=== PATIENT | female | born 1955 | race Caucasian/White ===

== ENCOUNTER 2016-07-15 19:32 | Emergency (ER) | payer MEDICARE ==
[2016-07-15] MEDS ORDERED: DIAZEPAM 5 MG TABLET PO ONE (20:59)
--- NOTE | 2016-07-15 20:59 | ER Document Report ---
ED General - General Chief Complaint: Psych Problem Stated Complaint: PSYCH EVAL/LEFT SIDE PAIN Time Seen by Provider: 07/15/16 20:25 Notes: Patient is a 61-year-old female past medical history of depression, anxiety, and chronic pain who presents "with a mental breakdown". Patient states she got into a verbal altercation with her neighbor yesterday and this is triggered increased anxiety as well as homicide ideation toward this neighbor. Denies any acute suicidal ideation. She is not currently following a mental health provider notes that she's been out of all of her medications for at least 3 months. Nothing improves or worsens her symptoms. She denies any specific plan or intention to hurt her neighbor. - Related Data Allergies/Adverse Reactions: oxycodone [From OxyContin] Allergy (Verified 07/15/16 19:36) Past Medical History - General Information source: Patient - Social History Smoking Status: Never Smoker Frequency of alcohol use: None Drug Abuse: None Lives with: Family Family History: Reviewed & Not Pertinent Renal/ Medical History: Denies: Hx Peritoneal Dialysis Review of Systems - Review of Systems Notes: Constitutional: Negative for fever. HENT: Negative for sore throat. Eyes: Negative for visual changes. Cardiovascular: Negative for chest pain. Respiratory: Negative for shortness of breath. Gastrointestinal: Negative for abdominal pain, vomiting or diarrhea. Genitourinary: Negative for dysuria. Musculoskeletal: Negative for back pain. Skin: Negative for rash. Neurological: Negative for headaches, weakness or numbness. 10 point ROS negative except as marked above and in HPI. Physical Exam - Vital signs Vitals: Temp Pulse Resp BP Pulse Ox 98.2 F 101 H 20 196/115 H 97 07/15/16 19:36 07/15/16 19:36 07/15/16 19:36 07/15/16 19:36 07/15/16 19:36 Interpretation: Normal Notes: PHYSICAL EXAMINATION: GENERAL: Well-appearing, well-nourished and in no acute distress. HEAD: Atraumatic, normocephalic. EYES: Pupils equal round and reactive to light, extraocular movements intact, sclera anicteric, conjunctiva are normal. ENT: nares patent, oropharynx clear without exudates. Moist mucous membranes. NECK: Normal range of motion, supple without lymphadenopathy LUNGS: Breath sounds clear to auscultation bilaterally and equal. No wheezes rales or rhonchi. HEART: Regular rate and rhythm without murmurs ABDOMEN: Soft, nontender, normoactive bowel sounds. No guarding, no rebound. No masses appreciated. EXTREMITIES: Normal range of motion, no pitting or edema. No cyanosis. NEUROLOGICAL: No focal neurological deficits. Moves all extremities spontaneously and on command. PSYCH: Somewhat irritable, intermittently yelling inappropriately. Appropriate insight. Somewhat depressed mood. SKIN: Warm, Dry, normal turgor, no rashes or lesions noted. Course - Re-evaluation Re-evalutation: 07/15/16 20:56 Patient presents with concerns of untreated baseline depression, anxiety of a personality disorder. She states that she is at increased stress at home and a confrontation with her neighbor. She has run out of most of her prior depression and anxiety medications and also notes that her primary source of discomfort is her chronic pain and lack of narcotic pain medications. Patient denies any acute safety concerns. She denies any suicidal ideation. Although she knows that she "wants to kill" her neighbor she states very clearly that if given the opportunity "I would just ignore her and walk away. She denies any specific plans to hurt harm this person and states that she has no intention of actually harming her only that she feels very frustrated by this person. Denies any acute medical concerns. She will be discharged with outpatient mental health resources. Verbal discharge instructions given a the bedside and opportunity for questions given. Medication warnings reviewed. Patient is in agreement with this plan and has verbalized understanding of return precautions and the need for primary care follow-up in the next 24-72 hours. - Vital Signs Vital signs: Temp Pulse Resp BP Pulse Ox 97.6 F 70 17 174/97 H 96 07/15/16 21:17 07/15/16 21:17 07/15/16 21:17 07/15/16 21:17 07/15/16 21:17 Discharge - Discharge Clinical Impression: Depression with anxiety Condition: Good Disposition: HOME, SELF-CARE Additional Instructions: Please return if you develop thoughts of wanting to harm yourself, hurt others, take excessive medications, began hearing voices or seeing things, or have any other symptoms that are concerning to you.
[2016-07-15 22:59] VITALS: BP 174/97
== END 2016-07-15 21:24 | disposition home or self-care (01) ==
LOC: ER 19:32
DX: F32.9 Major depressive disorder, single episode, unspecified (principal); F41.9 Anxiety disorder, unspecified; R52 Pain, unspecified; G89.29 Other chronic pain
CPT/HCPCS: 99283

== ENCOUNTER → 2017-01-15 | Outpatient (CLI) | payer MEDICARE ==
[2017-01-15 12:00] LABS: ABSOLUTE EOSINOPHILS # (AUTO) 0.1 10^3/uL (0.0-0.6); ABSOLUTE LYMPHOCYTES (AUTO) 1.4 10^3/uL (0.5-4.7); ABSOLUTE MONOCYTES (AUTO) 0.6 10^3/uL (0.1-1.4); ABSOLUTE NEUT (AUTO) 8.4 10^3/uL (1.7-8.2); BASOPHILS % (AUTO) 0.3 % (0-2); EOSINOPHILS % (AUTO) 1.1 % (0-6); HEMATOCRIT 47.2 % (36.0-47.0); HEMOGLOBIN 16.2 g/dL (12.0-15.5); HGB HCT DIFFERENCE 1.4; LYMPHOCYTES % (AUTO) 13.2 % (13-45); MEAN CORPUSCULAR HEMOGLOBIN 30.5 pg (27.0-33.4); MEAN CORPUSCULAR HGB CONC 34.3 g/dL (32.0-36.0); MEAN CORPUSCULAR VOLUME 89 fl (80-97); MONOCYTES % (AUTO) 5.7 % (3-13); RED BLOOD COUNT 5.31 10^6/uL (3.72-5.28); RED CELL DISTRIBUTION WIDTH 14.6 % (11.5-14.0); SEGMENTED NEUTROPHILS % (AUTO) 79.7 % (42-78); WHITE BLOOD COUNT 10.6 10^3/uL (4.0-10.5)
[2017-01-15 12:06] LABS: APPEARANCE,URINE SLIGHTLY-CLOUDY; BILIRUBIN,URINE NEGATIVE (NEGATIVE); GLUCOSE, URINE NEGATIVE (NEGATIVE); KETONES,URINE NEGATIVE (NEGATIVE); LEUKOCYTE ESTERASE,URINE NEGATIVE (NEGATIVE); NITRITE,URINE NEGATIVE (NEGATIVE); PROTEIN,URINE NEGATIVE (NEGATIVE); URINE SPECIFIC GRAVITY 1.015; UROBILINOGEN,URINE NEGATIVE mg/dL (<2.0)
[2017-01-15 12:26] LABS: ANION GAP 12 (5-19); BLOOD UREA NITROGEN 16 mg/dL (7-20); CALCIUM 9.3 mg/dL (8.4-10.2); CARBON DIOXIDE 28 mmol/L (22-30); CHLORIDE 105 mmol/L (98-107); CREATININE RESULT 1.03 mg/dL (0.52-1.25); GLUCOSE 91 mg/dL (75-110); POTASSIUM 4.5 mmol/L (3.6-5.0); SODIUM 145.2 mmol/L (137-145)
--- NOTE | 2017-01-15 12:29 | RADIOLOGY REPORT (SQ) ---
EXAM DESCRIPTION: CHEST PA/LATERAL COMPLETED DATE/TIME: 01/15/2017 11:26 am REASON FOR STUDY: PRE OP COMPARISON: None. EXAM PARAMETERS: NUMBER OF VIEWS: two views TECHNIQUE: Digital Frontal and Lateral radiographic views of the chest acquired. RADIATION DOSE: NA LIMITATIONS: none FINDINGS: LUNGS AND PLEURA: No opacities, masses or pneumothorax. No pleural effusion. MEDIASTINUM AND HILAR STRUCTURES: No masses or contour abnormalities. HEART AND VASCULAR STRUCTURES: Heart normal size. No evidence for failure. BONES: No acute findings. HARDWARE: None in the chest. OTHER: No other significant finding. IMPRESSION: NO SIGNIFICANT RADIOGRAPHIC FINDING IN THE CHEST. TECHNICAL DOCUMENTATION: JOB ID: [id number] [employer]- All Rights Reserved
--- NOTE | 2017-01-15 14:12 | EKG REPORT ---
SEVERITY:- BORDERLINE ECG - SINUS RHYTHM RIGHT AXIS DEVIATION BORDERLINE T WAVE ABNORMALITIES : Confirmed by: Roberta Greenfield 15-Jan-2017 14:11:50
== END ==
LOC: OD 10:41
PROVIDERS: ATTEND Orthopaedic Surgery
DX: Z01.810 Encounter for preprocedural cardiovascular examination (principal); Z01.812 Encounter for preprocedural laboratory examination; Z01.818 Encounter for other preprocedural examination
CPT/HCPCS: 36415; 71020; 80048; 81001; 85025; 93005; 93010

== ENCOUNTER 2017-01-29 05:22 | Inpatient (IN) | payer MEDICARE ==
[~2017-01-29 05:22] MED LIST: BUPIVACAINE INJ/PF LIPOSOME/PF 266 MG/20 ML SDV INJ PRN; CEFAZOLIN INJ 1 GM VIAL IV PRN; IBUPROFEN 800 MG in NORMAL SALINE 250 ML IV PRN; LACTATED RINGERS 1000 ML IV PRN; LANSOPRAZOLE 15 MG TAB.RAP.DR PO PRN; LIDOCAINE 0.5% INJ-PF (5 MG/ML) 50 ML SDV SUBCUT PRN; OXYCODONE HCL SR 10 MG TABLET PO PRN; THROMBIN (BOVINE) 5000 UNIT EPITAXIS KIT ONE; THROMBIN (BOVINE) TOPICAL 20000 UNIT VIAL ONE; VANCOMYCIN HCL 1,000 MG in DEXTROSE 5%-WATER 250 ML IV PRN
[2017-01-29] MEDS: ALBUTEROL SULFATE 0.083% NEB 2.5 MG/3 ML AMPUL NEB ONE ×2 (06:20→11:55)
[2017-01-29] MEDS ORDERED: ALBUTEROL SULFATE 0.083% NEB 2.5 MG/3 ML AMPUL NEB ONE (06:23)
[2017-01-29] MEDS ORDERED: LIDOCAINE 2% INJ-PF (20 MG/ML) 10 ML AMPUL ONE (06:40)
[2017-01-29] MEDS ORDERED: FENTANYL CITRATE INJ/PF 100 MCG/2 ML AMPUL ONE (06:40)
[2017-01-29] MEDS ORDERED: ACETAMINOPHEN 100 ML IV ONE ×2 (06:40→14:37)
[2017-01-29] MEDS ORDERED: MIDAZOLAM 2 MG/2 ML INJ ONE (06:40)
[2017-01-29] MEDS ORDERED: TRANEXAMIC ACID INJ/PF 1,000 MG/10 ML SDV IV ONE ×2 (06:40→09:51)
[2017-01-29] MEDS ORDERED: PROPOFOL INJ 200 MG/20 ML VIAL IV ONE (06:40)
[2017-01-29] MEDS ORDERED: ONDANSETRON HCL INJ/PF 4 MG/2 ML SDV ONE (06:40)
[2017-01-29] MEDS ORDERED: AMLODIPINE BESYLATE 10 MG TABLET ONE (06:49)
[2017-01-29] MEDS ORDERED: BUPIVACAINE INJ/PF LIPOSOME/PF 266 MG/20 ML SDV ONE (06:51)
[2017-01-29] MEDS: AMLODIPINE BESYLATE 10 MG TABLET PO ONE ×2 (06:54→11:55)
[2017-01-29] MEDS ORDERED: ONDANSETRON HCL INJ/PF 4 MG/2 ML SDV IV PRN ×2 (08:04→08:37)
[2017-01-29] MEDS ORDERED: FENTANYL CITRATE INJ/PF 100 MCG/2 ML AMPUL IV PRN ×3 (08:04)
[2017-01-29] MEDS ORDERED: PROMETHAZINE HCL INJ 25 MG/1 ML VIAL IV PRN ×2 (08:04)
[2017-01-29] MEDS ORDERED: DIPHENHYDRAMINE HCL 50 MG/ML VIAL IV PRN ×2 (08:04→08:37)
[2017-01-29] MEDS ORDERED: MEPERIDINE HCL/PF INJ 25 MG/1 ML DISP.SYRIN IV PRN (08:04)
[2017-01-29] MEDS ORDERED: THROMBIN (BOVINE) TOPICAL 20000 UNIT VIAL TP ONE (08:11)
--- NOTE | 2017-01-29 08:25 | Operative Report ---
Operative Report DATE OF SURGERY: 01/29/17 PREOPERATIVE DIAGNOSIS: Left hip arthrosis OPERATION: Left hip arthroplasty SURGEON: AINSLEY INIGUEZ 1ST [employer] NEEDS: MAY CORDOVA ANESTHESIA: Spinal TISSUE REMOVED OR ALTERED: Femoral head to pathology ESTIMATED BLOOD LOSS: 100 PROCEDURE: Implants used: Femur: Milka Accolade 2 stem size 5 Acetabular shell: 58 mm hemispherical shell Liner: 36 mm flat cross-link polyethylene liner Head: 36 mm chrome cobalt head -5 neck The patient is placed in a right lateral decubitus position on the operating table. The left lower extremity and hindquarter is prepped and draped in a sterile fashion. A curvilinear incision was made over the greater trochanter a posterior approach the hip was taken. The femoral head is dislocated and the femoral neck transected using an oscillating saw. Attention was next turned to the acetabulum. Soft tissues cleared off the acetabulum using electrocautery. The acetabulum was then prepared using a series of hemispherical reamers until a 57 millimeters reamer is seated. Subsequently a 58 millimeters Gabriels titanium hemispherical shell is impacted into position and secured with one screw. A standard flat 36 millimeters cross- link liner is impacted into the shell. Attention was next turned to the femur. Access is gained to the femoral canal using a box osteotome to the piriformis fossa. The femur is then prepared using a series of broaches until a number 5 broach is seated. A trial reduction was now performed using a 36 millimeters head with and -5 neck. Preoperative leg length was recreated and is excellent anterior posterior stability. A decision was made to proceed with the above construct. All trial implants were removed. The wound is irrigated with pulsed lavage. A number 5 stem is impacted into the femoral canal. A trial reduction was again performed with a 36 mm head and a -5 neck. Findings as previously. The hip was dislocated one last time and the final chrome-cobalt head is impacted onto the trunnion. The hip was reduced. Wound is copiously irrigated with pulsed lavage. Sent closed in layers using interrupted Vicryl followed by moncho. A sterile dressing is applied and the patient's returned to recovery room in satisfactory patient.
[2017-01-29] MEDS ORDERED: ACETAMINOPHEN 325 MG TABLET PO PRN (08:37)
[2017-01-29] MEDS ORDERED: MORPHINE SULFATE 10 MG/ML INJ IM PRN (08:37)
[2017-01-29] MEDS ORDERED: ONDANSETRON 4 MG TAB.RAPDIS PO PRN (08:37)
[2017-01-29] MEDS ORDERED: MAG HYDROX/AL HYDROX/SIMETH SUSP 30 ML UDCUP PO PRN (08:37)
[2017-01-29] MEDS ORDERED: MORPHINE SULFATE 10 MG/ML INJ IV PRN ×3 (08:37)
[2017-01-29] MEDS ORDERED: ZOLPIDEM TARTRATE 5 MG TABLET PO PRN (08:37)
[2017-01-29] MEDS ORDERED: RINGERS SOLUTION,LACTATED 1,000 ML IV PRN (08:37)
[2017-01-29] MEDS ORDERED: TRANEXAMIC ACID INJ/PF 1,000 MG/10 ML SDV IV SCH (10:30)
--- NOTE | 2017-01-29 11:24 | RADIOLOGY REPORT (SQ) ---
EXAM DESCRIPTION: PELVIS AP COMPLETED DATE/TIME: 01/29/2017 9:01 am REASON FOR STUDY: Post Op Long Cassette in PACU M16.12 UNILATERAL PRIMARY OSTEOARTHRITIS, LEFT HIP COMPARISON: None. NUMBER OF VIEWS: One view TECHNIQUE: Digital radiographic images of the pelvis post-procedure LIMITATIONS: None. FINDINGS: BONES: No worrisome or unexpected findings post-procedure. Bones are osteoporotic DEVICE: Left total hip replacement with anchored acetabular component. Good alignment. SOFT TISSUES: No worrisome findings. Expected postoperative soft tissue changes. IMPRESSION: SATISFACTORY POSTOPERATIVE PELVIS. TECHNICAL DOCUMENTATION: JOB ID: [id number] [employer]- All Rights Reserved
[2017-01-29] MEDS: PREGABALIN 75 MG CAPSULE PO SCH ×2 (11:57→17:37)
[2017-01-29] MEDS: OXYCODONE HCL SR 10 MG TABLET PO SCH ×2 (11:58→21:29)
[2017-01-29] MEDS: OXYCODONE HCL IR 5 MG TABLET PO PRN (16:37)
[2017-01-29] MEDS: IBUPROFEN 800 MG in NORMAL SALINE 250 ML IV SCH (17:37)
[2017-01-29] MEDS ORDERED: NICOTINE 21 MG/24 HR PATCH.TD24 TD ONE (20:00)
[2017-01-29] MEDS ORDERED: VANCOMYCIN HCL 1,000 MG in DEXTROSE 5%-WATER 250 ML IV ONE (20:37)
[2017-01-29] MEDS ORDERED: (PENDING PHARMACY ID) (Hydroxyzine Hcl [Hydroxyzine Hcl] 50 MG) PO PRN (20:47)
[2017-01-29] MEDS: ZOLPIDEM TARTRATE 5 MG TABLET PO PRN (21:29)
[2017-01-29] MEDS: TRAZODONE HCL 50 MG TABLET PO SCH (21:29)
[2017-01-29] MEDS: BUDESONIDE/FORMOTEROL 160-4.5 MCG 60 PUFF/6 GM MDI IH SCH (21:31)
[2017-01-30] MEDS: OXYCODONE HCL IR 5 MG TABLET PO PRN (04:43)
[2017-01-30] MEDS: LANSOPRAZOLE 30 MG TAB.RAP.DR PO SCH (05:05)
[2017-01-30] MEDS: IBUPROFEN 800 MG in NORMAL SALINE 250 ML IV SCH ×3 (05:05→18:03)
[2017-01-30] MEDS ORDERED: LANSOPRAZOLE 30 MG TAB.RAP.DR PO SCH (06:00)
--- NOTE | 2017-01-30 06:53 | PDOC PROGRESS REPORT ---
Subjective Progress Note for:: 01/30/17 Subjective:: Patient with complaints of nausea and dizziness. Reason For Visit: M16.12 UNILATERAL PRIMARY OSTEOARTHRITIS, LEFT HIP Physical Exam Vital Signs: Temp Pulse Resp BP Pulse Ox 37.2 C 86 17 127/71 H 90 L 01/30/17 04:54 01/30/17 04:54 01/30/17 04:54 01/30/17 04:54 01/30/17 04:54 Intake & Output 01/28/17 01/29/17 01/30/17 06:59 06:59 06:59 Intake Total 0 4640 Output Total 2049 Balance 0 2590 General appearance: PRESENT: mild distress Head exam: PRESENT: normocephalic Respiratory exam: PRESENT: unlabored Cardiovascular exam: PRESENT: RRR Pulses: PRESENT: +1 pedal pulses bilateral Vascular exam: PRESENT: normal capillary refill GI/Abdominal exam: PRESENT: soft Rectal exam: PRESENT: deferred Extremities exam: PRESENT: other - Left hip dressing clean dry and intact. Leg lengths are equal. Distal neurovascular examination is intact. Neurological exam: PRESENT: alert, awake, oriented to person, oriented to place , oriented to time, oriented to situation. ABSENT: motor sensory deficit Psychiatric exam: PRESENT: appropriate affect, normal mood. ABSENT: homicidal ideation, suicidal ideation Skin exam: PRESENT: dry, intact, warm. ABSENT: cyanosis, rash Results Laboratory Results: 01/29/17 05:52 Impressions: Pelvis X-Ray 01/29/17 08:39 IMPRESSION: SATISFACTORY POSTOPERATIVE PELVIS. Status: Imported from PACS Assessment & Plan - Diagnosis (1) Arthritis of left hip Is this a current diagnosis for this admission?: Yes Plan: 61-year-old white female postop day 1 from left hip arthroplasty. Patient made limited progress with physical therapy yesterday ambulating 20 feet. Current labs are pending today. Anticipate discharge home tomorrow pending appropriate functional status - Time Time Spent with patient: 15-24 minutes Anticipated discharge: Home with Homehealth Within: within 24 hours
[2017-01-30 07:24] LABS: HEMATOCRIT 41.1 % (36.0-47.0); HEMOGLOBIN 13.6 g/dL (12.0-15.5); HGB HCT DIFFERENCE -0.3; MEAN CORPUSCULAR HEMOGLOBIN 29.8 pg (27.0-33.4); MEAN CORPUSCULAR VOLUME 90 fl (80-97); RED BLOOD COUNT 4.56 10^6/uL (3.72-5.28); RED CELL DISTRIBUTION WIDTH 14.2 % (11.5-14.0); WHITE BLOOD COUNT 12.8 10^3/uL (4.0-10.5)
[2017-01-30 07:33] LABS: ANION GAP 9 (5-19); BLOOD UREA NITROGEN 16 mg/dL (7-20); CALCIUM 8.6 mg/dL (8.4-10.2); CARBON DIOXIDE 26 mmol/L (22-30); CHLORIDE 106 mmol/L (98-107); CREATININE RESULT 0.91 mg/dL (0.52-1.25); GLUCOSE 125 mg/dL (75-110); POTASSIUM 4.5 mmol/L (3.6-5.0); SODIUM 141.3 mmol/L (137-145)
[2017-01-30] MEDS: DULOXETINE HCL 30 MG CAPSULE.DR PO SCH (09:24)
[2017-01-30] MEDS: OXYCODONE HCL SR 10 MG TABLET PO SCH ×2 (09:25→21:32)
[2017-01-30] MEDS: PREGABALIN 75 MG CAPSULE PO SCH ×2 (09:27→18:03)
[2017-01-30] MEDS: AMLODIPINE BESYLATE 5 MG TABLET PO SCH (09:28)
[2017-01-30] MEDS: ASPIRIN 81 MG TABLET, ENT COATED PO SCH (09:29)
[2017-01-30] MEDS: MELOXICAM 15 MG TABLET PO SCH (09:29)
[2017-01-30] MEDS: BUDESONIDE/FORMOTEROL 160-4.5 MCG 60 PUFF/6 GM MDI IH SCH ×2 (09:30→21:33)
[2017-01-30] MEDS: NICOTINE 21 MG/24 HR PATCH.TD24 TD SCH (09:31)
[2017-01-30] MEDS: FUROSEMIDE 20 MG TABLET PO SCH (09:36)
[2017-01-30] MEDS ORDERED: HYDROXYZINE PAMOATE 50 MG CAPSULE PO PRN (10:00)
[2017-01-30] MEDS: TRAZODONE HCL 50 MG TABLET PO SCH (21:32)
[2017-01-30] MEDS: ZOLPIDEM TARTRATE 5 MG TABLET PO PRN (21:32)
[2017-01-31] MEDS: IBUPROFEN 800 MG in NORMAL SALINE 250 ML IV SCH ×2 (01:25→10:24)
[2017-01-31] MEDS: LANSOPRAZOLE 30 MG TAB.RAP.DR PO SCH (05:53)
[2017-01-31 06:28] LABS: HEMATOCRIT 37.5 % (36.0-47.0); HEMOGLOBIN 12.5 g/dL (12.0-15.5); MEAN CORPUSCULAR HGB CONC 33.4 g/dL (32.0-36.0); MEAN CORPUSCULAR VOLUME 90 fl (80-97); RED BLOOD COUNT 4.17 10^6/uL (3.72-5.28); RED CELL DISTRIBUTION WIDTH 14.4 % (11.5-14.0); WHITE BLOOD COUNT 10.4 10^3/uL (4.0-10.5)
--- NOTE | 2017-01-31 07:14 | PDOC PROGRESS REPORT ---
Subjective Progress Note for:: 01/31/17 Subjective:: 61-year-old white female 2 days status post total left hip arthroplasty. Patient reports that she is much more comfortable and is not having as much trouble ambulating from her hospital bed to the chair and to the bathroom. Patient reiterates that she will plan to go to a rehab facility to improve strength before returning home. Patient was reassured that this was a viable plan. Reason For Visit: M16.12 UNILATERAL PRIMARY OSTEOARTHRITIS, LEFT HIP Physical Exam Vital Signs: Temp Pulse Resp BP Pulse Ox 37.2 C 79 18 135/71 H 90 L 01/30/17 23:48 01/30/17 23:48 01/30/17 23:48 01/30/17 23:48 01/30/17 23:48 Intake & Output 01/30/17 01/31/17 02/01/17 06:59 06:59 06:59 Intake Total 4640 2230 Output Total 2050 Balance 2590 2230 General appearance: PRESENT: no acute distress, well-developed, well-nourished Head exam: PRESENT: atraumatic, normocephalic Respiratory exam: PRESENT: unlabored Pulses: PRESENT: normal dorsalis pedis pul, +2 pedal pulses bilateral Vascular exam: PRESENT: normal capillary refill Additional comments: Patient's left lower extremity is in full extension with patient lying recumbent in hospital bed. Her OpSite dressing is in place and is clean dry and intact. She is nontender to palpation. There is minimal pedal edema and her sensory motor functions are intact and her distal neurovascular exam is intact Musculoskeletal exam: PRESENT: ambulatory Additional comments: Patient continues to make progress with physical therapy ambulating 60 feet independently. She will continue to work with physical therapy throughout her stay in the hospital and at her rehab facility. They will continue to work towards improved strength and range of motion of the left lower extremity. Neurological exam: PRESENT: alert, awake, oriented to person, oriented to place , oriented to time, oriented to situation, CN II-XII grossly intact. ABSENT: motor sensory deficit Psychiatric exam: PRESENT: appropriate affect, normal mood. ABSENT: homicidal ideation, suicidal ideation Skin exam: PRESENT: dry, intact, warm. ABSENT: cyanosis, rash Results Laboratory Results: 01/31/17 05:39 01/30/17 06:56 01/30/17 01/30/17 01/31/17 06:56 06:56 05:39 WBC 12.8 H 10.4 RBC 4.56 4.17 Hgb 13.6 12.5 Hct 41.1 37.5 MCV 90 90 MCH 29.8 30.0 MCHC 33.0 33.4 RDW 14.2 H 14.4 H Plt Count 180 172 Sodium 141.3 Potassium 4.5 Chloride 106 Carbon Dioxide 26 Anion Gap 9 BUN 16 Creatinine 0.91 Est GFR ( Amer) > 60 Est GFR (Non-Af Amer) > 60 Glucose 125 H Calcium 8.6 Impressions: Pelvis X-Ray 01/29/17 08:39 IMPRESSION: SATISFACTORY POSTOPERATIVE PELVIS. Assessment & Plan - Diagnosis (1) Arthritis of left hip Is this a current diagnosis for this admission?: Yes - Plan Summary Plan Summary: 61-year-old white female 2 days status post total left hip arthroplasty. Patient doing better with pain control and particularly pain with ambulation. She continues to make progress with physical therapy ambulating 60 feet independently. She will continue to work with physical therapy. Patient reiterates that she would like to be discharged to an extended care facility she was reassured that this is a sound and viable option. We will plan for discharge to a retirement facility tomorrow.
[2017-01-31] MEDS: NICOTINE 21 MG/24 HR PATCH.TD24 TD SCH (09:41)
[2017-01-31] MEDS: MELOXICAM 15 MG TABLET PO SCH (09:42)
[2017-01-31] MEDS: ASPIRIN 81 MG TABLET, ENT COATED PO SCH (09:43)
[2017-01-31] MEDS: DULOXETINE HCL 30 MG CAPSULE.DR PO SCH (09:43)
[2017-01-31] MEDS: PREGABALIN 75 MG CAPSULE PO SCH ×2 (09:43→17:02)
[2017-01-31] MEDS: FUROSEMIDE 20 MG TABLET PO SCH (09:44)
[2017-01-31] MEDS: AMLODIPINE BESYLATE 5 MG TABLET PO SCH (09:44)
[2017-01-31] MEDS: BUDESONIDE/FORMOTEROL 160-4.5 MCG 60 PUFF/6 GM MDI IH SCH ×2 (10:23→22:05)
[2017-01-31] MEDS: OXYCODONE HCL IR 5 MG TABLET PO PRN (16:14)
[2017-01-31] MEDS: ZOLPIDEM TARTRATE 5 MG TABLET PO PRN (22:05)
[2017-01-31] MEDS: TRAZODONE HCL 50 MG TABLET PO SCH (22:05)
[2017-02-01] MEDS: LANSOPRAZOLE 30 MG TAB.RAP.DR PO SCH (05:26)
--- NOTE | 2017-02-01 05:56 | PDOC TRANSFER SUMMARY ---
General - Admit/Disc Date/PCP Admission Date/Primary Care Provider: 01/29/17 05:22 JAYSON TREVINO NP Discharge Date: 02/01/17 - Discharge Diagnosis (1) Arthritis of left hip Is this a current diagnosis for this admission?: Yes - Additional Information Resuscitation Status: Full Code Discharge Diet: As Tolerated, Regular Discharge Activity: Balance Activity w/Rest, No Driving, No tub bath Home Medications: Amlodipine Besylate 5 mg PO DAILY 01/15/17 Duloxetine HCl [Cymbalta] 60 mg PO DAILY 01/15/17 Furosemide [Lasix 20 mg Tablet] 20 mg PO DAILY 01/15/17 Hydroxyzine HCl 50 mg PO BIDP PRN 01/15/17 Meloxicam 15 mg PO DAILY 01/15/17 Pantoprazole Sodium 40 mg PO DAILY 01/15/17 Trazodone HCl 200 mg PO QHS 01/15/17 Budesonide/Formoterol Fumarate [Symbicort 160-4.5 Mcg Inhaler] 2 puff IH Q12 Aspirin [Ecotrin 81 mg EC Tablet] 81 mg PO DAILY tabec 02/01/17 Nicotine [Nicoderm 21 mg/24 Hr Transderm Patch] 1 each TD DAILY patch.td24 Oxycodone HCl [Oxy-Ir 5 mg Tablet] 5 mg PO Q6HP PRN tablet 02/01/17 History of Present Illness Admission Date/PCP: 01/29/17 05:22 JAYSON TREVINO NP History of Present Illness: DORI AMBRIZ is a 61 year old female with progressive left hip pain and functional disability secondary osteoarthritis. Patient is admitted for an elective left hip arthroplasty. Hospital Course Hospital Course: Patient admitted through the operating room where she undergoes uncomplicated left hip arthroplasty. She is returned to floor in satisfactory condition. She seen by physical therapy for weightbearing as tolerated ambulation. Physical Exam Vital Signs: Temp Pulse Resp BP Pulse Ox 37.1 C 92 18 138/72 H 89 L 01/31/17 23:20 01/31/17 23:20 01/31/17 23:20 01/31/17 23:20 01/31/17 23:20 Intake & Output 01/30/17 01/31/17 02/01/17 06:59 06:59 06:59 Intake Total 4640 2230 1080 Output Total 2050 Balance 2590 2230 1080 General appearance: PRESENT: no acute distress Head exam: PRESENT: normocephalic Respiratory exam: PRESENT: unlabored Cardiovascular exam: PRESENT: RRR Pulses: PRESENT: +1 pedal pulses bilateral Vascular exam: PRESENT: normal capillary refill GI/Abdominal exam: PRESENT: soft Rectal exam: PRESENT: deferred Musculoskeletal exam: PRESENT: other - Left hip wound remains clean dry and intact. Leg lengths are equal. Distal neurovascular examination is intact. Neurological exam: PRESENT: alert, awake, oriented to person, oriented to place , oriented to time, oriented to situation. ABSENT: motor sensory deficit Psychiatric exam: PRESENT: appropriate affect, normal mood. ABSENT: homicidal ideation, suicidal ideation Skin exam: PRESENT: dry, intact, warm. ABSENT: cyanosis, rash Results Laboratory Results: 01/31/17 05:39 01/30/17 06:56 01/31/17 05:39 WBC 10.4 RBC 4.17 Hgb 12.5 Hct 37.5 MCV 90 MCH 30.0 MCHC 33.4 RDW 14.4 H Plt Count 172 Impressions: Pelvis X-Ray 01/29/17 08:39 IMPRESSION: SATISFACTORY POSTOPERATIVE PELVIS. Status: Imported from PACS Transfer Plan - Disposition Transfer Plan: Patient to be transferred to a custodial facility for ongoing postoperative rehabilitation. Follow-up can be with Dr. Hdez and [facility] for surgery in 2 weeks for staple removal.
[2017-02-01 07:17] LABS: HEMATOCRIT 36.8 % (36.0-47.0); HEMOGLOBIN 12.1 g/dL (12.0-15.5); HGB HCT DIFFERENCE -0.5; MEAN CORPUSCULAR HEMOGLOBIN 29.5 pg (27.0-33.4); MEAN CORPUSCULAR VOLUME 89 fl (80-97); RED BLOOD COUNT 4.11 10^6/uL (3.72-5.28); RED CELL DISTRIBUTION WIDTH 14.4 % (11.5-14.0); WHITE BLOOD COUNT 8.7 10^3/uL (4.0-10.5)
[2017-02-01 09:28] VITALS: BP 150/83
[2017-02-01] MEDS: DULOXETINE HCL 30 MG CAPSULE.DR PO SCH (09:55)
[2017-02-01] MEDS: OXYCODONE HCL IR 5 MG TABLET PO PRN (09:57)
[2017-02-01] MEDS: FUROSEMIDE 20 MG TABLET PO SCH (09:58)
[2017-02-01] MEDS: ASPIRIN 81 MG TABLET, ENT COATED PO SCH (09:58)
[2017-02-01] MEDS: AMLODIPINE BESYLATE 5 MG TABLET PO SCH (09:58)
[2017-02-01] MEDS: PREGABALIN 75 MG CAPSULE PO SCH (09:58)
[2017-02-01] MEDS: NICOTINE 21 MG/24 HR PATCH.TD24 TD SCH (09:59)
[2017-02-01] MEDS: MELOXICAM 15 MG TABLET PO SCH (10:03)
[2017-02-01] MEDS: BUDESONIDE/FORMOTEROL 160-4.5 MCG 60 PUFF/6 GM MDI IH SCH (10:05)
== END 2017-02-01 15:03 | DRG 470 ==
LOC: INOR 05:22 → 4S 11:17
PROVIDERS: ADMIT Orthopaedic Surgery; ATTEND Orthopaedic Surgery
PROC: 0SRB02A Replacement of Left Hip Joint with Metal on Polyethylene Synthetic Substitute, Uncemented, Open Approach (ICD-10-PCS; principal; 2017-01-29 07:30)
DX: M16.12 Unilateral primary osteoarthritis, left hip (principal); I10 Essential (primary) hypertension; J44.9 Chronic obstructive pulmonary disease, unspecified; M79.7 Fibromyalgia; F17.210 Nicotine dependence, cigarettes, uncomplicated; Z96.651 Presence of right artificial knee joint; Z79.51 Long term (current) use of inhaled steroids; Z79.899 Other long term (current) drug therapy
CPT/HCPCS: 01214; 36415; 72170; 80048; 84132; 85027; 86850; 86900; 86901; 88304; 88311; 94799; C1713; C9290; G8978-GP; G8979-GP; G8987-GO; G8988-GO; J0131; J0690; J1741; J2250; J2270; J2405; J2704; J3010; J3370; J3490; J7050; J7060

== ENCOUNTER → 2018-04-08 | Outpatient (CLI) | payer MEDICARE ==
[2018-04-08 08:40] LABS: ABSOLUTE EOSINOPHILS # (AUTO) 0.2 10^3/uL (0.0-0.6); ABSOLUTE LYMPHOCYTES (AUTO) 2.6 10^3/uL (0.5-4.7); ABSOLUTE MONOCYTES (AUTO) 0.8 10^3/uL (0.1-1.4); BASOPHILS % (AUTO) 0.4 % (0-2); HEMATOCRIT 48.3 % (36.0-47.0); HEMOGLOBIN 16.4 g/dL (12.0-15.5); LYMPHOCYTES % (AUTO) 24.5 % (13-45); MEAN CORPUSCULAR HEMOGLOBIN 30.9 pg (27.0-33.4); MEAN CORPUSCULAR HGB CONC 33.9 g/dL (32.0-36.0); MEAN CORPUSCULAR VOLUME 91 fl (80-97); MONOCYTES % (AUTO) 7.2 % (3-13); PLATELET COUNT 264 10^3/uL (150-450); RED BLOOD COUNT 5.29 10^6/uL (3.72-5.28); RED CELL DISTRIBUTION WIDTH 14.8 % (11.5-14.0); SEGMENTED NEUTROPHILS % (AUTO) 65.9 % (42-78); TOTAL CELLS COUNTED % (AUTO) 100 %; WHITE BLOOD COUNT 10.7 10^3/uL (4.0-10.5)
[2018-04-08 08:44] LABS: APPEARANCE,URINE SLIGHTLY-CLOUDY; BILIRUBIN,URINE NEGATIVE (NEGATIVE); COLOR,URINE YELLOW; GLUCOSE, URINE NEGATIVE (NEGATIVE); KETONES,URINE NEGATIVE (NEGATIVE); LEUKOCYTE ESTERASE,URINE NEGATIVE (NEGATIVE); NITRITE,URINE NEGATIVE (NEGATIVE); PROTEIN,URINE NEGATIVE (NEGATIVE); URINE SPECIFIC GRAVITY 1.024
[2018-04-08 09:12] LABS: ANION GAP 7 (5-19); BLOOD UREA NITROGEN 23 mg/dL (7-20); CALCIUM 9.6 mg/dL (8.4-10.2); CARBON DIOXIDE 32 mmol/L (22-30); CHLORIDE 106 mmol/L (98-107); GLUCOSE 97 mg/dL (75-110); POTASSIUM 4.5 mmol/L (3.6-5.0); SODIUM 145.4 mmol/L (137-145)
== END ==
LOC: OD 07:08
PROVIDERS: ATTEND Orthopaedic Surgery
DX: Z01.818 Encounter for other preprocedural examination (principal); E11.9 Type 2 diabetes mellitus without complications
CPT/HCPCS: 36415; 80048; 81001; 83036; 85025

== ENCOUNTER 2018-05-02 05:48 | Inpatient (IN) | payer MEDICARE ==
[2018-05-04] MEDS ORDERED: LACTATED RINGERS 1000 ML IV PRN (05:00)
[2018-05-04] MEDS ORDERED: LIDOCAINE 0.5% INJ-PF (5 MG/ML) 50 ML SDV SUBCUT PRN (05:00)
[2018-05-06] MEDS ORDERED: IBUPROFEN 800 MG in DEXTROSE 5%-WATER 250 ML IV PRN (05:00)
[2018-05-06] MEDS ORDERED: IBUPROFEN 800 MG in NORMAL SALINE 250 ML IV PRN (05:00)
[2018-05-06] MEDS ORDERED: OXYCODONE HCL SR 10 MG TABLET PO PRN (05:00)
[2018-05-06] MEDS ORDERED: VANCOMYCIN HCL 1,000 MG in DEXTROSE 5%-WATER 250 ML IV PRN (05:00)
[2018-05-06] MEDS ORDERED: LANSOPRAZOLE 15 MG TAB.RAP.DR PO PRN (05:00)
[2018-05-06] MEDS ORDERED: BUPIVACAINE INJ/PF LIPOSOME/PF 266 MG/20 ML SDV INJ PRN (05:00)
[2018-05-06] MEDS ORDERED: CEFAZOLIN INJ 1 GM VIAL IV PRN (05:00)
[2018-05-06] MEDS ORDERED: BUPIVACAINE HCL 0.5%-EPI 1:200000 INJ/PF 30 ML VIAL ONE (07:16)
[2018-05-06] MEDS ORDERED: CEFAZOLIN INJ 1 GM VIAL ONE (07:24)
[2018-05-06] MEDS ORDERED: LANSOPRAZOLE 15 MG TAB.RAP.DR ONE (07:24)
[2018-05-06] MEDS ORDERED: TRANEXAMIC ACID INJ/PF 1,000 MG/10 ML SDV IV ONE (08:09)
[2018-05-06] MEDS ORDERED: ACETAMINOPHEN 1,000 MG/100 ML RTUPB IV ONE (08:09)
[2018-05-06] MEDS ORDERED: MORPHINE SULFATE 10 MG/ML INJ ONE (08:09)
[2018-05-06] MEDS ORDERED: FENTANYL CITRATE INJ/PF 250 MCG/5 ML AMPULE ONE (08:09)
[2018-05-06] MEDS ORDERED: MIDAZOLAM 2 MG/2 ML INJ ONE (08:09)
[2018-05-06] MEDS ORDERED: DIPHENHYDRAMINE HCL 50 MG/ML VIAL IV PRN (09:34)
[2018-05-06] MEDS ORDERED: MORPHINE SULFATE 10 MG/ML INJ IV PRN (09:34)
[2018-05-06] MEDS ORDERED: PROMETHAZINE HCL INJ 25 MG/1 ML VIAL IV PRN ×2 (09:34)
[2018-05-06] MEDS ORDERED: FENTANYL CITRATE INJ/PF 100 MCG/2 ML AMPUL IV PRN ×3 (09:34)
[2018-05-06] MEDS ORDERED: MEPERIDINE HCL/PF INJ 25 MG/1 ML DISP.SYRIN IV PRN (09:34)
[2018-05-06] MEDS ORDERED: METHYLPREDNISOLONE ACETATE INJ 40 MG/1 ML ML ONE (09:37)
[2018-05-06] MEDS ORDERED: ONDANSETRON HCL INJ/PF 4 MG/2 ML SDV ONE ×2 (10:38→11:56)
[2018-05-06] MEDS ORDERED: GLYCOPYRROLATE 1 MG/5 ML SYRINGE ONE (10:38)
[2018-05-06] MEDS ORDERED: DEXAMETHASONE SOD PHOSPHATE INJ 4 MG/1 ML VIAL ONE (10:38)
[2018-05-06] MEDS ORDERED: ROCURONIUM BROMIDE INJ 50 MG/5 ML VIAL IV ONE (10:38)
[2018-05-06] MEDS ORDERED: SUCCINYLCHOLINE CHLORIDE INJ 200 MG/10 ML VIAL ONE (10:38)
[2018-05-06] MEDS ORDERED: NEOSTIGMINE METHYLSULFATE 10 MG/10 ML VIAL ONE (10:38)
--- NOTE | 2018-05-06 10:41 | Operative Report ---
Operative Report DATE OF SURGERY: 05/06/18 PREOPERATIVE DIAGNOSIS: Left shoulder arthritis OPERATION: Left shoulder arthroplasty SURGEON: AINSLEY INIGUEZ ANESTHESIA: GA TISSUE REMOVED OR ALTERED: Bone to pathology ESTIMATED BLOOD LOSS: 100 PROCEDURE: Implants used: Fox reunion size 12 humeral stem Size 44 x 18 humeral head Size 44 self pressurizing glenoid, cemented With the patient in a beachchair position on the operative table left upper extremities and forequarter are prepped and draped in sterile fashion. A deltopectoral approach to the shoulder is taken. The biceps tendon is transected in a tenodesis was performed. Approximately 1 cm of the proximal insertion of the pectoralis was released. Next an osteotome was realized to perform an osteotomy of the lesser tuberosity and attached subscapularis. This is elevated and tagged with a suture. The capsule was subsequently opened. The humeral head is translated anteriorly and access is obtained to the medullary canal. This is reamed with cylindrical reamers until a size 12 mm reamer is used. A proximal humeral resection was performed using oscillating saw. Subsequently the proximal humerus was prepared with appropriate broaches until a #12 broach is seated. A protective cap was placed over the proximal humerus and attention was now turned to the glenoid. Retractors were used to expose the glenoid and the existing labrum and hypertrophic synovium are removed exposing the rim of the glenoid. The glenoid is then prepared for the cemented implant using 4 peg holes. Polymethylmethacrylate is mixed and used to cement the size [address] Attention returned to the humerus. A trial reduction was performed with a 48 mm head times 18 mm thickness. This provides excellent range of motion and excellent stability. The humeral trial implants were removed. The final 12 mm meter modular humeral stem is impacted into the canal. The 48 mm x 18 mm single radius humeral head is impacted into the reverse trunnion. The wound is irrigated. The lesser tuberosity osteotomy was repaired using 2 FiberWire suture. Likewise the remainder of the rotator cuff proximally is repaired using 2 FiberWire suture. The perimuscular fascia is reapproximated Vicryl as this is subcutaneous tissue. The skin is reapproximated using moncho. A sterile compressive dressing and abduction pillow were applied and the patient's return to the PACU in satisfactory condition.
[2018-05-06] MEDS ORDERED: PROMETHAZINE HCL INJ 25 MG/1 ML VIAL ONE (11:06)
[2018-05-06] MEDS ORDERED: (PENDING PHARMACY ID) (Hydroxyzine Hcl [Hydroxyzine Hcl] 50 MG) PO PRN (11:35)
[2018-05-06] MEDS ORDERED: RINGERS SOLUTION,LACTATED 1,000 ML IV PRN (11:53)
[2018-05-06] MEDS ORDERED: OXYCODONE HCL IR 5 MG TABLET PO PRN (11:56)
[2018-05-06] MEDS ORDERED: ONDANSETRON 4 MG TAB.RAPDIS PO PRN (11:56)
[2018-05-06] MEDS ORDERED: HYDROXYZINE PAMOATE 50 MG CAPSULE PO PRN (12:00)
[2018-05-06] MEDS: CEFAZOLIN 2 GM/D5W RTU 2 GM/50 ML RTUPB IV SCH ×3 (14:19→23:05)
--- NOTE | 2018-05-06 15:11 | RADIOLOGY REPORT (SQ) ---
EXAM DESCRIPTION: SHOULDER LEFT 2 OR MORE VIEWS COMPLETED DATE/TIME: 05/06/2018 2:42 pm REASON FOR STUDY: Arthroplasty M19.012 PRIMARY OSTEOARTHRITIS, LEFT SHOULDER COMPARISON: None. NUMBER OF VIEWS: Two views. TECHNIQUE: Internal and external rotation images acquired of the left shoulder. LIMITATIONS: None. FINDINGS: Expected postoperative changes status post shoulder arthroplasty. Components in expected location. No fracture. IMPRESSION: Satisfactory postop shoulder arthroplasty. TECHNICAL DOCUMENTATION: JOB ID: [id number] [employer]- All Rights Reserved Reading location - IP/workstation name: [email or web address]
[2018-05-06] MEDS: MORPHINE SULFATE 10 MG/ML INJ IV PRN ×2 (15:15→17:50)
[2018-05-06] MEDS: BUDESONIDE/FORMOTEROL 160-4.5 MCG 60 PUFF/6 GM MDI IH SCH (21:52)
[2018-05-06] MEDS: TRAZODONE HCL 50 MG TABLET PO SCH (21:52)
[2018-05-07] MEDS: MORPHINE SULFATE 10 MG/ML INJ IV PRN ×3 (03:38→10:58)
[2018-05-07] MEDS: LANSOPRAZOLE 30 MG TAB.RAP.DR PO SCH (05:32)
--- NOTE | 2018-05-07 07:14 | PDOC PROGRESS REPORT ---
Subjective Progress Note for:: 05/07/18 Reason For Visit: John NGUYEN 63-year-old white female postop day 1 status post left shoulder arthroplasty. Patient with an uneventful postoperative course except complaints of pain in the antecubital fossa and associated with the use of the abduction pillow. Physical Exam Vital Signs: Temp Pulse Resp BP Pulse Ox 36.9 C 97 16 152/97 H 97 05/06/18 17:25 05/06/18 17:25 05/06/18 17:25 05/06/18 17:25 05/06/18 17:25 Intake & Output 05/06/18 05/07/18 05/08/18 06:59 06:59 06:59 Intake Total 4488 Output Total 2550 Balance 1938 Weight 106.2 kg Physical Exam: Overweight if not obese middle-aged white female lying in bed. Abduction pillow in place. Patient is alert, oriented, and appropriate. General appearance: PRESENT: no acute distress Head exam: PRESENT: normocephalic Respiratory exam: PRESENT: unlabored Cardiovascular exam: PRESENT: RRR Vascular exam: PRESENT: normal capillary refill GI/Abdominal exam: PRESENT: soft Rectal exam: PRESENT: deferred Extremities exam: PRESENT: other - Left shoulder dressing with considerable fresh bloody drainage. This is changed. Distal neurovascular examination of left hand is intact. Neurological exam: PRESENT: alert, awake, oriented to person, oriented to place, oriented to time, oriented to situation. ABSENT: motor sensory deficit Psychiatric exam: PRESENT: appropriate affect, normal mood. ABSENT: homicidal ideation, suicidal ideation Skin exam: PRESENT: dry, intact, warm. ABSENT: cyanosis, rash Results Laboratory Results: 05/06/18 06:49 05/06/18 05/06/18 06:49 06:49 Potassium 4.6 Blood Type A POSITIVE Antibody Screen NEGATIVE Impressions: Shoulder X-Ray 05/06/18 00:00 IMPRESSION: Satisfactory postop shoulder arthroplasty. Status: Imported from PACS Assessment & Plan - Diagnosis (1) Arthritis of left shoulder region Is this a current diagnosis for this admission?: Yes Plan: The patient will mobilized with physical therapy and occupational therapy. Anticipate care home facility placement when available. - Time Time Spent with patient: 15-24 minutes Anticipated discharge: SNF Within: within 48 hours
[2018-05-07 07:42] LABS: HEMATOCRIT 41.9 % (36.0-47.0); HEMOGLOBIN 14.2 g/dL (12.0-15.5); MEAN CORPUSCULAR HEMOGLOBIN 30.6 pg (27.0-33.4); MEAN CORPUSCULAR VOLUME 90 fl (80-97); PLATELET COUNT 238 10^3/uL (150-450); RED BLOOD COUNT 4.65 10^6/uL (3.72-5.28); RED CELL DISTRIBUTION WIDTH 14.7 % (11.5-14.0); WHITE BLOOD COUNT 16.1 10^3/uL (4.0-10.5)
[2018-05-07 07:45] LABS: ANION GAP 9 (5-19); BLOOD UREA NITROGEN 16 mg/dL (7-20); CALCIUM 9.4 mg/dL (8.4-10.2); CARBON DIOXIDE 30 mmol/L (22-30); CHLORIDE 101 mmol/L (98-107); GLUCOSE 112 mg/dL (75-110); POTASSIUM 4.2 mmol/L (3.6-5.0); SODIUM 139.5 mmol/L (137-145)
[2018-05-07] MEDS: ACETAMINOPHEN 325 MG TABLET PO PRN ×2 (08:50→18:15)
[2018-05-07] MEDS: LOSARTAN POTASSIUM 50 MG TABLET PO SCH (09:12)
[2018-05-07] MEDS: FUROSEMIDE 20 MG TABLET PO SCH (09:12)
[2018-05-07] MEDS: DULOXETINE HCL 30 MG CAPSULE.DR PO SCH (09:12)
[2018-05-07] MEDS: ASPIRIN 81 MG TABLET, ENT COATED PO SCH (09:12)
[2018-05-07] MEDS: HYDROCHLOROTHIAZIDE 12.5 MG TABLET PO SCH (09:12)
[2018-05-07] MEDS: BUDESONIDE/FORMOTEROL 160-4.5 MCG 60 PUFF/6 GM MDI IH SCH ×2 (09:13→21:06)
[2018-05-07] MEDS ORDERED: MELOXICAM 15 MG TABLET PO SCH (10:00)
[2018-05-07] MEDS ORDERED: (PENDING PHARMACY ID) (Losartan/Hydrochlorothiazide [Hyzaar 100-12.5 Tablet] 1 TAB) PO SCH (10:00)
[2018-05-07] MEDS: OXYCODONE-ACETAMINOPHEN 5-325 MG TABLET PO PRN ×2 (13:51→20:02)
[2018-05-07] MEDS: TRAZODONE HCL 50 MG TABLET PO SCH (21:06)
[2018-05-08] MEDS: LANSOPRAZOLE 30 MG TAB.RAP.DR PO SCH (06:40)
[2018-05-08] MEDS: OXYCODONE-ACETAMINOPHEN 5-325 MG TABLET PO PRN ×3 (06:40→19:28)
--- NOTE | 2018-05-08 07:02 | PDOC PROGRESS REPORT ---
Subjective Progress Note for:: 05/08/18 Reason For Visit: John NGUYEN 63-year-old white female postop day 2 status post left shoulder arthroplasty. Patient with complaints about the abduction pillow but otherwise seems to be d oing well. Physical Exam Vital Signs: Temp Pulse Resp BP Pulse Ox 37.4 C 92 18 131/78 H 93 05/07/18 20:20 05/07/18 20:20 05/07/18 20:20 05/07/18 20:20 05/07/18 20:20 Intake & Output 05/06/18 05/07/18 05/08/18 06:59 06:59 06:59 Intake Total 4488 920 Output Total 2550 Balance 1938 920 Weight 106.2 kg 107.2 kg Physical Exam: Obese middle-aged white female with left shoulder abduction pillow in place. Patient is alert, cooperative, and appropriate. General appearance: PRESENT: no acute distress, mild distress, obese Head exam: PRESENT: normocephalic Respiratory exam: PRESENT: unlabored Cardiovascular exam: PRESENT: RRR Pulses: PRESENT: +1 pedal pulses bilateral Vascular exam: PRESENT: normal capillary refill GI/Abdominal exam: PRESENT: soft Rectal exam: PRESENT: deferred Extremities exam: PRESENT: other - Left shoulder dressing with 2 small splotchy spots of bloody drainage after changing yesterday morning. Distal neurovascular examination of the hand is intact. Neurological exam: PRESENT: alert, awake, oriented to person, oriented to place, oriented to time, oriented to situation. ABSENT: motor sensory deficit Psychiatric exam: PRESENT: appropriate affect, normal mood. ABSENT: homicidal ideation, suicidal ideation Skin exam: PRESENT: dry, intact, warm. ABSENT: cyanosis, rash Results Laboratory Results: 05/07/18 06:59 05/07/18 06:59 05/07/18 05/07/18 06:59 06:59 WBC 16.1 H RBC 4.65 Hgb 14.2 Hct 41.9 MCV 90 MCH 30.6 MCHC 34.0 RDW 14.7 H Plt Count 238 Sodium 139.5 Potassium 4.2 Chloride 101 Carbon Dioxide 30 Anion Gap 9 BUN 16 Creatinine 0.98 Est GFR ( Amer) > 60 Est GFR (Non-Af Amer) 57 L Glucose 112 H Calcium 9.4 Impressions: Shoulder X-Ray 05/06/18 00:00 IMPRESSION: Satisfactory postop shoulder arthroplasty. Status: Imported from PACS Assessment & Plan - Diagnosis (1) Arthritis of left shoulder region Is this a current diagnosis for this admission?: Yes Plan: Patient ambulating on activity as tolerated basis. Physical therapy occupational therapy have been consulted. Awaiting half-way facility placement tomorrow. - Time Time Spent with patient: 15-24 minutes Anticipated discharge: SNF Within: within 24 hours
[2018-05-08] MEDS: FUROSEMIDE 20 MG TABLET PO SCH (09:23)
[2018-05-08] MEDS: DULOXETINE HCL 30 MG CAPSULE.DR PO SCH (09:23)
[2018-05-08] MEDS: LOSARTAN POTASSIUM 50 MG TABLET PO SCH (09:23)
[2018-05-08] MEDS: BUDESONIDE/FORMOTEROL 160-4.5 MCG 60 PUFF/6 GM MDI IH SCH ×2 (09:24→21:00)
[2018-05-08] MEDS: HYDROCHLOROTHIAZIDE 12.5 MG TABLET PO SCH (09:24)
[2018-05-08] MEDS: ASPIRIN 81 MG TABLET, ENT COATED PO SCH (09:24)
[2018-05-08] MEDS: TRAZODONE HCL 50 MG TABLET PO SCH (20:59)
[2018-05-09 00:39] VITALS: BP 112/51
[2018-05-09] MEDS: OXYCODONE-ACETAMINOPHEN 5-325 MG TABLET PO PRN (01:20)
[2018-05-09] MEDS: LANSOPRAZOLE 30 MG TAB.RAP.DR PO SCH (05:10)
--- NOTE | 2018-05-09 07:08 | PDOC TRANSFER SUMMARY ---
General - Admit/Disc Date/PCP Admission Date/Primary Care Provider: 05/06/18 06:18 JAYSON TREVINO NP Discharge Date: 05/09/18 - Discharge Diagnosis (1) Arthritis of left shoulder region Is this a current diagnosis for this admission?: Yes - Additional Information Resuscitation Status: Full Code Home Medications: Furosemide [Lasix 20 mg Tablet] 20 mg PO DAILY 01/15/17 Meloxicam 15 mg PO DAILY 01/15/17 Pantoprazole Sodium 40 mg PO DAILY 01/15/17 Budesonide/Formoterol Fumarate [Symbicort 160-4.5 Mcg Inhaler] 2 puff IH Q12 01/18/17 Aspirin [Ecotrin 81 mg EC Tablet] 81 mg PO DAILY tabec 02/01/17 Losartan/Hydrochlorothiazide [Hyzaar 100-12.5 Tablet] 1 tab PO DAILY 04/16/18 Amlodipine Besylate [Norvasc 5 mg Tablet] 5 mg PO DAILY 05/06/18 Duloxetine HCl [Cymbalta] 90 mg PO DAILY 05/06/18 Hydroxyzine Pamoate [Vistaril 50 mg Capsule] 50 mg PO BIDP PRN 05/06/18 Trazodone HCl [Desyrel] 150 mg PO QHS 05/06/18 History of Present Illness Admission Date/PCP: 05/06/18 06:18 JAYSON TREVINO NP History of Present Illness: DORI AMBRIZ is a 63 year old female Patient is a 63-year-old white female with progressive left shoulder pain and functional disability second osteoarthritis. Patient is admitted for elective left shoulder arthroplasty. Hospital Course Hospital Course: Patient is admitted through the operating where she undergoes unconjugated left shoulder arthroplasty. She is returned to floor in satisfactory condition. Initially there is a modest amount of bleeding and the dressing was changed on postop day 1. This remains clean dry and intact throughout the rest of her admission. Pain control is slightly problematic and narcotic medication is adjusted to make the patient comfortable. She is ambulating ad miriam. Abduction pillow to the left upper extremity in place. Physical Exam Vital Signs: Temp Pulse Resp BP Pulse Ox 37.1 C 88 20 112/51 L 93 05/09/18 00:00 05/09/18 00:00 05/09/18 00:00 05/09/18 00:00 05/09/18 00:00 Intake & Output 05/08/18 05/09/18 05/10/18 06:59 06:59 06:59 Intake Total 920 603 Balance 920 603 Weight 107.2 kg 108.9 kg General appearance: PRESENT: no acute distress, mild distress, obese Head exam: PRESENT: normocephalic Respiratory exam: PRESENT: unlabored Cardiovascular exam: PRESENT: RRR Pulses: PRESENT: normal radial pulses Vascular exam: PRESENT: normal capillary refill GI/Abdominal exam: PRESENT: soft Rectal exam: PRESENT: deferred Musculoskeletal exam: PRESENT: ambulatory, other - Right shoulder dressing clean dry and intact. Distal neurovascular examination is intact. Neurological exam: PRESENT: alert, awake, oriented to person, oriented to place, oriented to time, oriented to situation. ABSENT: motor sensory deficit Psychiatric exam: PRESENT: appropriate affect, normal mood. ABSENT: homicidal ideation, suicidal ideation Skin exam: PRESENT: dry, intact, warm. ABSENT: cyanosis, rash Results Laboratory Results: 05/07/18 06:59 05/07/18 06:59 Impressions: Shoulder X-Ray 05/06/18 00:00 IMPRESSION: Satisfactory postop shoulder arthroplasty. Status: Imported from PACS Transfer Plan - Disposition Transfer Plan: [facility] be [facility] to [facility] for [facility] nursing, occupational therapy and physical therapy. Follow-up with Dr. Hdez in the [facility] for surgery in 2 weeks for staple removal. - Time Spent with Patient Time spent with patient: Less than 30 Minutes Qualifiers - * PATIENT BEING DISCHARGED WITH ANY OF THE FOLLOWING DIAGNOSIS: No Reason(s) for not prescribing Overlap Therapy:: Not indicated Plan Discharge Plan: Patient be transferred to a [facility] facility.
[2018-05-09] MEDS: HYDROCHLOROTHIAZIDE 12.5 MG TABLET PO SCH (09:38)
[2018-05-09] MEDS: LOSARTAN POTASSIUM 50 MG TABLET PO SCH (09:39)
[2018-05-09] MEDS: FUROSEMIDE 20 MG TABLET PO SCH (09:39)
[2018-05-09] MEDS: DULOXETINE HCL 30 MG CAPSULE.DR PO SCH (09:39)
[2018-05-09] MEDS: ASPIRIN 81 MG TABLET, ENT COATED PO SCH (09:39)
[2018-05-09] MEDS: BUDESONIDE/FORMOTEROL 160-4.5 MCG 60 PUFF/6 GM MDI IH SCH (09:40)
== END 2018-05-09 10:10 | DRG 483 ==
LOC: INOR 05-06 06:18 → 4S 05-06 12:34
PROVIDERS: ADMIT Orthopaedic Surgery; ATTEND Orthopaedic Surgery
PROC: 0RRK0JZ Replacement of Left Shoulder Joint with Synthetic Substitute, Open Approach (ICD-10-PCS; principal; 2018-05-06 08:45)
DX: M19.012 Primary osteoarthritis, left shoulder (principal); K57.92 Diverticulitis of intestine, part unspecified, without perforation or abscess without bleeding; I10 Essential (primary) hypertension; M19.011 Primary osteoarthritis, right shoulder; M79.7 Fibromyalgia; E66.9 Obesity, unspecified; F17.200 Nicotine dependence, unspecified, uncomplicated; Z96.649 Presence of unspecified artificial hip joint; Z96.659 Presence of unspecified artificial knee joint; Z88.6 Allergy status to analgesic agent; Z79.82 Long term (current) use of aspirin; Z68.32 Body mass index [BMI] 32.0-32.9, adult
CPT/HCPCS: 01630; 36415; 80048; 84132; 85027; 86850; 86900; 86901; 88305; 88311; C1713; C1776; J0131; J0330; J0690; J1020; J1100; J1741; J2250; J2270; J2405; J2550; J3010; J3370; J3490; J7050; J7060

== ENCOUNTER → 2019-01-16 | Outpatient (CLI) | payer MEDICARE, OTHER ==
--- NOTE | 2019-01-16 09:42 | RADIOLOGY REPORT (SQ) ---
EXAM DESCRIPTION: CHEST PA/LATERAL COMPLETED DATE/TIME: 01/16/2019 9:32 am REASON FOR STUDY: PRE-OP COMPARISON: None. EXAM PARAMETERS: NUMBER OF VIEWS: two views TECHNIQUE: Digital Frontal and Lateral radiographic views of the chest acquired. RADIATION DOSE: NA LIMITATIONS: none FINDINGS: LUNGS AND PLEURA: No opacities, masses or pneumothorax. No pleural effusion. MEDIASTINUM AND HILAR STRUCTURES: No masses or contour abnormalities. HEART AND VASCULAR STRUCTURES: Heart normal size. No evidence for failure. BONES: No acute findings. The patient has had a prior left shoulder arthroplasty. HARDWARE: None in the chest. OTHER: No other significant finding. IMPRESSION: NO SIGNIFICANT RADIOGRAPHIC FINDING IN THE CHEST. TECHNICAL DOCUMENTATION: JOB ID: [id number] [employer]- All Rights Reserved Reading location - IP/workstation name: [email or web address]
--- NOTE | 2019-01-16 09:51 | EKG REPORT ---
SEVERITY:- OTHERWISE NORMAL ECG - SINUS RHYTHM RIGHT AXIS DEVIATION : Confirmed by: Vita Lamar MD 16-Jan-2019 09:50:59
[2019-01-16 10:04] LABS: APPEARANCE,URINE CLOUDY; BILIRUBIN,URINE NEGATIVE (NEGATIVE); COLOR,URINE AMBER; GLUCOSE, URINE NEGATIVE (NEGATIVE); KETONES,URINE TRACE mg/dL (NEGATIVE); LEUKOCYTE ESTERASE,URINE NEGATIVE (NEGATIVE); NITRITE,URINE NEGATIVE (NEGATIVE); PROTEIN,URINE 30 mg/dL (NEGATIVE); URINE SPECIFIC GRAVITY 1.028
[2019-01-16 10:27] LABS: ABSOLUTE EOSINOPHILS # (AUTO) 0.1 10^3/uL (0.0-0.6); ABSOLUTE LYMPHOCYTES (AUTO) 1.6 10^3/uL (0.5-4.7); ABSOLUTE MONOCYTES (AUTO) 0.8 10^3/uL (0.1-1.4); ABSOLUTE NEUT (AUTO) 7.9 10^3/uL (1.7-8.2); BASOPHILS % (AUTO) 0.4 % (0-2); EOSINOPHILS % (AUTO) 0.7 % (0-6); HEMATOCRIT 48.8 % (36.0-47.0); HEMOGLOBIN 16.6 g/dL (12.0-15.5); MEAN CORPUSCULAR HEMOGLOBIN 30.6 pg (27.0-33.4); MEAN CORPUSCULAR HGB CONC 34.1 g/dL (32.0-36.0); MEAN CORPUSCULAR VOLUME 90 fl (80-97); MONOCYTES % (AUTO) 7.4 % (3-13); PLATELET COUNT 238 10^3/uL (150-450); RED BLOOD COUNT 5.42 10^6/uL (3.72-5.28); RED CELL DISTRIBUTION WIDTH 15.4 % (11.5-14.0); SEGMENTED NEUTROPHILS % (AUTO) 76.5 % (42-78); TOTAL CELLS COUNTED % (AUTO) 100 %; WHITE BLOOD COUNT 10.4 10^3/uL (4.0-10.5)
[2019-01-16 10:51] LABS: ANION GAP 10 (5-19); BLOOD UREA NITROGEN 23 mg/dL (7-20); CALCIUM 9.5 mg/dL (8.4-10.2); CARBON DIOXIDE 29 mmol/L (22-30); CHLORIDE 101 mmol/L (98-107); GLUCOSE 98 mg/dL (75-110); POTASSIUM 4.1 mmol/L (3.6-5.0)
== END ==
LOC: OD 09:02
PROVIDERS: ATTEND Orthopaedic Surgery
DX: Z01.810 Encounter for preprocedural cardiovascular examination (principal); Z01.811 Encounter for preprocedural respiratory examination; Z01.812 Encounter for preprocedural laboratory examination; M16.11 Unilateral primary osteoarthritis, right hip; I10 Essential (primary) hypertension
CPT/HCPCS: 36415; 71046; 80048; 81001; 85025; 93005; 93010

== ENCOUNTER 2019-02-10 06:08 | Inpatient (IN) | payer MEDICARE, OTHER ==
[~2019-02-10 06:08] MED LIST changes: +CEFAZOLIN INJ 1 GM VIAL INJ PRN; -CEFAZOLIN INJ 1 GM VIAL IV PRN; -LANSOPRAZOLE 15 MG TAB.RAP.DR PO PRN; +PANTOPRAZOLE SODIUM 20 MG TABLET.DR PO PRN; -THROMBIN (BOVINE) 5000 UNIT EPITAXIS KIT ONE; -THROMBIN (BOVINE) TOPICAL 20000 UNIT VIAL ONE
[2019-02-10] MEDS ORDERED: FENTANYL CITRATE INJ/PF 100 MCG/2 ML AMPUL ONE (07:08)
[2019-02-10] MEDS ORDERED: PROPOFOL INJ 200 MG/20 ML VIAL IV ONE (07:09)
[2019-02-10] MEDS ORDERED: EPHEDRINE SULFATE INJ 50 MG/1 ML AMPULE ONE (07:09)
[2019-02-10] MEDS ORDERED: MIDAZOLAM 2 MG/2 ML INJ ONE (07:09)
[2019-02-10] MEDS ORDERED: LIDOCAINE 0.5% INJ-PF (5 MG/ML) 50 ML SDV ONE (07:09)
[2019-02-10] MEDS ORDERED: ONDANSETRON HCL INJ/PF 4 MG/2 ML SDV ONE (07:09)
[2019-02-10] MEDS ORDERED: OXYCODONE HCL SR 10 MG TABLET PO ONE (07:13)
[2019-02-10] MEDS ORDERED: PANTOPRAZOLE SODIUM 20 MG TABLET.DR PO ONE (07:13)
[2019-02-10] MEDS ORDERED: CEFAZOLIN INJ 1 GM VIAL ONE (07:13)
[2019-02-10] MEDS ORDERED: TRANEXAMIC ACID INJ/PF 1,000 MG/10 ML SDV ONE (08:13)
[2019-02-10] MEDS ORDERED: KETAMINE HCL INJ 500 MG/10 ML VIAL ONE (09:35)
[2019-02-10] MEDS ORDERED: OXYCODONE-ACETAMINOPHEN 5-325 MG TABLET PO PRN ×2 (09:47)
[2019-02-10] MEDS ORDERED: MEPERIDINE HCL/PF INJ 25 MG/1 ML DISP.SYRIN IV PRN (09:47)
[2019-02-10] MEDS ORDERED: ONDANSETRON HCL INJ/PF 4 MG/2 ML SDV IV PRN (09:47)
[2019-02-10] MEDS ORDERED: DIPHENHYDRAMINE HCL 50 MG/ML VIAL IV PRN ×2 (09:47→10:11)
[2019-02-10] MEDS ORDERED: MORPHINE SULFATE 10 MG/ML INJ IV PRN (09:47)
[2019-02-10] MEDS ORDERED: PROMETHAZINE HCL INJ 25 MG/1 ML VIAL IV PRN ×2 (09:47)
[2019-02-10] MEDS ORDERED: FENTANYL CITRATE INJ/PF 100 MCG/2 ML AMPUL IV PRN ×3 (09:47)
--- NOTE | 2019-02-10 10:04 | Operative Report ---
Operative Report DATE OF SURGERY: 02/10/19 PREOPERATIVE DIAGNOSIS: Right hip arthritis OPERATION: Right hip arthroplasty SURGEON: AINSLEY INIGUEZ ANESTHESIA: Spinal TISSUE REMOVED OR ALTERED: Femoral head to pathology ESTIMATED BLOOD LOSS: 85 PROCEDURE: Implants used: Femur: Milka Accolade 2 stem, size 6 Acetabular shell: 54 mm hemispherical shell Liner: 36 mm flat cross-link polyethylene liner Head: 36 mm chrome cobalt head -5 neck The patient is placed in a left lateral decubitus position on the operating table. The right lower extremity and hindquarter is prepped and draped in a sterile fashion. A curvilinear incision was made over the greater trochanter a posterior approach the hip was taken. The femoral head is dislocated and the femoral neck transected using an oscillating saw. Attention was next turned to the acetabulum. Soft tissues cleared off the acetabulum using electrocautery. The acetabulum was then prepared using a series of hemispherical reamers until a 54 millimeters reamer is seated. Subsequently a 54 millimeters Milka titanium hemispherical shell is impacted into position. A standard flat 36 millimeters cross-link liner is impacted into the shell. Attention was next turned to the femur. Access is gained to the femoral canal using a box osteotome to the piriformis fossa. The femur is then prepared using a series of broaches until a number 6 broach is seated. A trial reduction was now performed using a 36 millimeters head with -5 neck. The leg might be slightly longer than the contralateral extremity but soft tissue tension is not optically talked. I accepted this leg length discrepancy as a means of ensuring anterior posterior stability. All trial implants were removed. The wound is irrigated with pulsed lavage. A number 6 stem is impacted into the femoral canal. A trial reduction was again performed with a 36 mm head and a -5 neck. Findings as previously. The hip was dislocated one last time and the final chrome-cobalt head is impacted onto the trunnion. The hip was reduced. Wound is copiously irrigated with pulsed lavage. Sent closed in layers using interrupted Vicryl followed by moncho. A sterile dressing is applied and the patient's returned to recovery room in satisfactory patient.
[2019-02-10] MEDS ORDERED: ONDANSETRON 4 MG TAB.RAPDIS PO PRN (10:11)
[2019-02-10] MEDS ORDERED: ACETAMINOPHEN 325 MG TABLET PO PRN (10:11)
[2019-02-10] MEDS ORDERED: MAG HYDROX/AL HYDROX/SIMETH SUSP 30 ML UDCUP PO PRN (10:11)
[2019-02-10] MEDS ORDERED: TRANEXAMIC ACID INJ/PF 1,000 MG/10 ML SDV IV ONE (11:30)
--- NOTE | 2019-02-10 11:54 | RADIOLOGY REPORT (SQ) ---
EXAM DESCRIPTION: PELVIS AP COMPLETED DATE/TIME: 02/10/2019 11:38 am REASON FOR STUDY: Post Op Long Cassette in PACU M16.11 UNILATERAL PRIMARY OSTEOARTHRITIS, RIGHT HI P COMPARISON: 01/29/2017. NUMBER OF VIEWS: One view TECHNIQUE: Digital radiographic images of the pelvis post-procedure LIMITATIONS: None. FINDINGS: BONES: No worrisome or unexpected findings post-procedure. DEVICE: Right hip bi-polar prothesis. Device appears in appropriate location. SOFT TISSUES: No worrisome findings. Expected postoperative soft tissue changes. IMPRESSION: SATISFACTORY POSTOPERATIVE PELVIS. TECHNICAL DOCUMENTATION: JOB ID: [id number] [employer]- All Rights Reserved Reading location - IP/workstation name: [email or web address]
[2019-02-10] MEDS: RINGERS SOLUTION,LACTATED 1,000 ML IV PRN (12:54)
[2019-02-10] MEDS: ONDANSETRON HCL INJ/PF 4 MG/2 ML SDV IV PRN (13:41)
[2019-02-10] MEDS: OXYCODONE HCL IR 5 MG TABLET PO PRN (14:19)
[2019-02-10] MEDS ORDERED: (PENDING PHARMACY ID) (Diclofenac Sodium [Diclofenac Sodium] 75 MG) PO PRN (14:42)
[2019-02-10] MEDS ORDERED: AMLODIPINE BESYLATE 5 MG TABLET PO PRN (14:42)
[2019-02-10] MEDS: IBUPROFEN 800 MG in NORMAL SALINE 250 ML IV SCH (17:04)
[2019-02-10] MEDS: SENNOSIDES/DOCUSATE 8.6-50 MG 1 EACH TABLET PO SCH (17:04)
[2019-02-10] MEDS: ZOLPIDEM TARTRATE 5 MG TABLET PO PRN (21:08)
[2019-02-10] MEDS: TRAZODONE HCL 50 MG TABLET PO SCH (21:08)
[2019-02-10] MEDS: OXYCODONE HCL SR 10 MG TABLET PO SCH (21:09)
[2019-02-10] MEDS ORDERED: (PENDING PHARMACY ID) (Trazodone Hcl [Desyrel] 150 MG) PO SCH (22:00)
[2019-02-10] MEDS ORDERED: VANCOMYCIN HCL 1,000 MG in DEXTROSE 5%-WATER 250 ML IV ONE (22:00)
[2019-02-11] MEDS: RINGERS SOLUTION,LACTATED 1,000 ML IV PRN ×2 (01:33→11:42)
[2019-02-11] MEDS: OXYCODONE HCL IR 5 MG TABLET PO PRN (01:35)
[2019-02-11] MEDS: IBUPROFEN 800 MG in NORMAL SALINE 250 ML IV SCH ×3 (03:25→19:52)
[2019-02-11] MEDS: PANTOPRAZOLE SODIUM 40 MG TABLET.DR PO SCH (05:08)
[2019-02-11 06:26] LABS: HEMATOCRIT 41.8 % (36.0-47.0); HEMOGLOBIN 14.2 g/dL (12.0-15.5); MEAN CORPUSCULAR HEMOGLOBIN 30.3 pg (27.0-33.4); MEAN CORPUSCULAR HGB CONC 33.9 g/dL (32.0-36.0); MEAN CORPUSCULAR VOLUME 89 fl (80-97); PLATELET COUNT 183 10^3/uL (150-450); RED BLOOD COUNT 4.69 10^6/uL (3.72-5.28); RED CELL DISTRIBUTION WIDTH 14.9 % (11.5-14.0); WHITE BLOOD COUNT 9.6 10^3/uL (4.0-10.5)
[2019-02-11 06:53] LABS: ANION GAP 8 (5-19); BLOOD UREA NITROGEN 13 mg/dL (7-20); CALCIUM 8.9 mg/dL (8.4-10.2); CARBON DIOXIDE 32 mmol/L (22-30); CHLORIDE 100 mmol/L (98-107); GLUCOSE 105 mg/dL (75-110); POTASSIUM 3.7 mmol/L (3.6-5.0)
--- NOTE | 2019-02-11 06:58 | PDOC PROGRESS REPORT ---
Subjective Progress Note for:: 02/11/19 Reason For Visit: RIGHT HIP ARTHRITIS 63-year-old white female now postop day 1 status post right hip arthroplasty. Excellent progress with physical therapy yesterday. No new complaints this morning. Physical Exam Vital Signs: Temp Pulse Resp BP Pulse Ox 36.8 C 88 18 161/96 H 95 02/10/19 23:50 02/10/19 23:50 02/10/19 23:50 02/10/19 23:50 02/10/19 23:50 Intake & Output 02/09/19 02/10/19 02/11/19 06:59 06:59 06:59 Intake Total 3416 Output Total 1600 Balance 1816 Weight 117.8 kg General appearance: PRESENT: no acute distress Head exam: PRESENT: normocephalic Respiratory exam: PRESENT: unlabored Cardiovascular exam: PRESENT: RRR Pulses: PRESENT: +1 pedal pulses bilateral Vascular exam: PRESENT: normal capillary refill GI/Abdominal exam: PRESENT: soft Rectal exam: PRESENT: deferred Musculoskeletal exam: PRESENT: other - Right hip dressing clean dry and intact. Leg lengths are equal. Distal neurovascular examination is intact. Neurological exam: PRESENT: alert, awake, oriented to person, oriented to place, oriented to time, oriented to situation. ABSENT: motor sensory deficit Results Laboratory Results: 02/11/19 04:33 02/10/19 02/10/19 02/11/19 06:00 06:00 04:33 WBC 9.6 RBC 4.69 Hgb 14.2 Hct 41.8 MCV 89 MCH 30.3 MCHC 33.9 RDW 14.9 H Plt Count 183 Potassium 3.8 Blood Type A POSITIVE Antibody Screen NEGATIVE Impressions: Pelvis X-Ray 02/10/19 10:13 IMPRESSION: SATISFACTORY POSTOPERATIVE PELVIS. Status: Imported from PACS Assessment & Plan - Diagnosis (1) Arthritis of right hip Is this a current diagnosis for this admission?: Yes - Time Time Spent with patient: 15-24 minutes Anticipated discharge: SNF Within: when bed available
[2019-02-11] MEDS: ONDANSETRON HCL INJ/PF 4 MG/2 ML SDV IV PRN (07:45)
[2019-02-11] MEDS ORDERED: (PENDING PHARMACY ID) (Losartan/Hydrochlorothiazide [Losartan-Hctz 100-25 Mg Tab] 1 EACH) PO SCH (10:00)
[2019-02-11] MEDS ORDERED: (PENDING PHARMACY ID) (Mirtazapine [Mirtazapine] 30 MG) PO SCH (10:00)
[2019-02-11] MEDS: OXYCODONE HCL SR 10 MG TABLET PO SCH ×2 (10:21→21:53)
[2019-02-11] MEDS: ASPIRIN 81 MG TABLET, ENT COATED PO SCH (10:21)
[2019-02-11] MEDS: SENNOSIDES/DOCUSATE 8.6-50 MG 1 EACH TABLET PO SCH ×2 (10:24→19:52)
[2019-02-11] MEDS: PRENATAL VITAMIN W DHA CAPSULE PO SCH (10:24)
[2019-02-11] MEDS: LOSARTAN POTASSIUM 50 MG TABLET PO SCH (10:24)
[2019-02-11] MEDS: MIRTAZAPINE 15 MG TABLET PO SCH (10:24)
[2019-02-11] MEDS: HYDROCHLOROTHIAZIDE 25 MG TABLET PO SCH (10:24)
[2019-02-11] MEDS: FUROSEMIDE 20 MG TABLET PO SCH (10:25)
[2019-02-11] MEDS: NICOTINE 21 MG/24 HR PATCH.TD24 TD SCH (14:36)
[2019-02-11] MEDS: TRAZODONE HCL 50 MG TABLET PO SCH (21:52)
[2019-02-11] MEDS: ZOLPIDEM TARTRATE 5 MG TABLET PO PRN (21:52)
[2019-02-12] MEDS: RINGERS SOLUTION,LACTATED 1,000 ML IV PRN (00:09)
[2019-02-12] MEDS: IBUPROFEN 800 MG in NORMAL SALINE 250 ML IV SCH ×2 (01:10→10:05)
[2019-02-12 04:52] LABS: HEMATOCRIT 37.7 % (36.0-47.0); HEMOGLOBIN 12.8 g/dL (12.0-15.5); MEAN CORPUSCULAR HEMOGLOBIN 30.3 pg (27.0-33.4); MEAN CORPUSCULAR VOLUME 89 fl (80-97); PLATELET COUNT 169 10^3/uL (150-450); RED BLOOD COUNT 4.23 10^6/uL (3.72-5.28); RED CELL DISTRIBUTION WIDTH 14.7 % (11.5-14.0); WHITE BLOOD COUNT 9.4 10^3/uL (4.0-10.5)
[2019-02-12] MEDS: PANTOPRAZOLE SODIUM 40 MG TABLET.DR PO SCH (05:46)
--- NOTE | 2019-02-12 07:15 | PDOC PROGRESS REPORT ---
Subjective Progress Note for:: 02/12/19 Reason For Visit: RIGHT HIP ARTHRITIS 63-year-old white female now postop day 2 status post hip arthroplasty. Patient complaining of pain but otherwise doing well. No physical therapy note from yesterday. Physical Exam Vital Signs: Temp Pulse Resp BP Pulse Ox 37.9 C 102 H 18 134/98 H 95 02/11/19 20:38 02/11/19 20:38 02/11/19 20:38 02/11/19 20:38 02/11/19 20:38 Intake & Output 02/11/19 02/12/19 02/13/19 06:59 06:59 06:59 Intake Total 3416 3504 Output Total 1600 Balance 1816 3504 Weight 117.8 kg 118.4 kg General appearance: PRESENT: no acute distress, obese Head exam: PRESENT: normocephalic Respiratory exam: PRESENT: unlabored Cardiovascular exam: PRESENT: RRR Pulses: PRESENT: +1 pedal pulses bilateral Vascular exam: PRESENT: normal capillary refill GI/Abdominal exam: PRESENT: soft Rectal exam: PRESENT: deferred Extremities exam: PRESENT: other - Right hip dressing clean dry and intact. Leg lengths are equal. Distal neurovascular examinations are intact. Neurological exam: PRESENT: alert, awake, oriented to person, oriented to place, oriented to time, oriented to situation. ABSENT: motor sensory deficit Psychiatric exam: PRESENT: appropriate affect, normal mood. ABSENT: homicidal ideation, suicidal ideation Skin exam: PRESENT: dry, intact, warm. ABSENT: cyanosis, rash Results Laboratory Results: 02/12/19 04:17 02/11/19 04:33 02/12/19 04:17 WBC 9.4 RBC 4.23 Hgb 12.8 Hct 37.7 MCV 89 MCH 30.3 MCHC 34.0 RDW 14.7 H Plt Count 169 Impressions: Pelvis X-Ray 02/10/19 10:13 IMPRESSION: SATISFACTORY POSTOPERATIVE PELVIS. Status: Imported from PACS Assessment & Plan - Diagnosis (1) Arthritis of right hip Is this a current diagnosis for this admission?: Yes Plan: 10 you with physical therapy and weightbearing as tolerated basis. Increased frequency of oxycodone administration. Anticipate [facility] to [facility] facility tomorrow. - Time Time Spent with patient: 15-24 minutes Anticipated discharge: SNF Within: when bed available
[2019-02-12] MEDS: OXYCODONE HCL IR 5 MG TABLET PO PRN ×3 (08:28→22:16)
[2019-02-12] MEDS: NICOTINE 21 MG/24 HR PATCH.TD24 TD SCH (10:06)
[2019-02-12] MEDS: SENNOSIDES/DOCUSATE 8.6-50 MG 1 EACH TABLET PO SCH ×2 (10:08→18:27)
[2019-02-12] MEDS: PRENATAL VITAMIN W DHA CAPSULE PO SCH (10:08)
[2019-02-12] MEDS: MIRTAZAPINE 15 MG TABLET PO SCH (10:08)
[2019-02-12] MEDS: FUROSEMIDE 20 MG TABLET PO SCH (10:08)
[2019-02-12] MEDS: HYDROCHLOROTHIAZIDE 25 MG TABLET PO SCH (10:09)
[2019-02-12] MEDS: LOSARTAN POTASSIUM 50 MG TABLET PO SCH (10:09)
[2019-02-12] MEDS: OXYCODONE HCL SR 10 MG TABLET PO SCH (10:09)
[2019-02-12] MEDS: ASPIRIN 81 MG TABLET, ENT COATED PO SCH (10:09)
[2019-02-12] MEDS: ONDANSETRON HCL INJ/PF 4 MG/2 ML SDV IV PRN (14:45)
[2019-02-12] MEDS: ZOLPIDEM TARTRATE 5 MG TABLET PO PRN (21:33)
[2019-02-12] MEDS: TRAZODONE HCL 50 MG TABLET PO SCH (21:33)
[2019-02-13] MEDS: PANTOPRAZOLE SODIUM 40 MG TABLET.DR PO SCH (05:18)
[2019-02-13 06:12] LABS: HEMOGLOBIN 13.4 g/dL (12.0-15.5); MEAN CORPUSCULAR HGB CONC 33.5 g/dL (32.0-36.0); MEAN CORPUSCULAR VOLUME 90 fl (80-97); PLATELET COUNT 200 10^3/uL (150-450); RED BLOOD COUNT 4.46 10^6/uL (3.72-5.28); RED CELL DISTRIBUTION WIDTH 14.7 % (11.5-14.0); WHITE BLOOD COUNT 11.1 10^3/uL (4.0-10.5)
--- NOTE | 2019-02-13 06:54 | PDOC TRANSFER SUMMARY ---
Impression - Admit/DC Date/PCP Admission Date/Primary Care Provider: 02/10/19 06:08 JAYSON TREVINO NP Discharge Date: 02/13/19 - Discharge Diagnosis (1) Arthritis of right hip Is this a current diagnosis for this admission?: Yes - Additional Information Resuscitation Status: Full Code Discharge Diet: Regular Discharge Activity: Balance Activity w/Rest, No tub bath Referrals: AINSLEY INIGUEZ MD [ACTIVE STAFF] - 02/27/19 9:30 am Home Medications: Amlodipine Besylate [Norvasc 5 mg Tablet] 5 mg PO DAILYP PRN 02/10/19 Diclofenac Sodium 75 mg PO BIDP PRN 02/10/19 Furosemide [Lasix 20 mg Tablet] 20 mg PO DAILY 02/10/19 Losartan/Hydrochlorothiazide [Losartan-Hctz 100-25 mg Tab] 1 each PO DAILY 02/10/19 Mirtazapine 30 mg PO DAILY 02/10/19 Trazodone HCl [Desyrel] 150 mg PO QHS 02/10/19 History of Present Illiness History of Present Illness: DORI AMBRIZ is a 63 year old female 63-year-old white female with progressive right hip pain and functional disability second osteoarthritis. Patient was admitted for elective right hip arthroplasty. Hospital Course Hospital Course: Patient is admitted through the operating where she undergoes uncomplicated right hip arthroplasty. She was returned to the floor in satisfactory condition. She makes progress with physical therapy and weight-bear as tolerated relation. Some issues with adequate analgesia. Physical Exam Vital Signs: Temp Pulse Resp BP Pulse Ox 36.8 C 96 18 145/88 H 99 02/12/19 23:00 02/12/19 23:00 02/12/19 23:00 02/12/19 23:00 02/12/19 23:00 Intake & Output 02/11/19 02/12/19 02/13/19 06:59 06:59 06:59 Intake Total 3416 3504 2494 Output Total 1600 Balance 1816 3504 2494 Weight 117.8 kg 118.4 kg 118.5 kg General appearance: PRESENT: mild distress, obese Head exam: PRESENT: normocephalic Respiratory exam: PRESENT: unlabored Cardiovascular exam: PRESENT: RRR Pulses: PRESENT: +1 pedal pulses bilateral Vascular exam: PRESENT: normal capillary refill GI/Abdominal exam: PRESENT: soft Rectal exam: PRESENT: deferred Musculoskeletal exam: PRESENT: other - Right hip dressing clean dry and intact. Leg lengths are equal. Distal neurovascular examinations intact. Neurological exam: PRESENT: alert, awake, oriented to person, oriented to place, oriented to time, oriented to situation. ABSENT: motor sensory deficit Psychiatric exam: PRESENT: appropriate affect, normal mood. ABSENT: homicidal ideation, suicidal ideation Skin exam: PRESENT: dry, intact, warm. ABSENT: cyanosis, rash Results Laboratory Results: WBC 11.1 10^3/uL (4.0-10.5) H 02/13/19 04:18 RBC 4.46 10^6/uL (3.72-5.28) 02/13/19 04:18 Hgb 13.4 g/dL (12.0-15.5) 02/13/19 04:18 Hct 40.0 % (36.0-47.0) 02/13/19 04:18 MCV 90 fl (80-97) 02/13/19 04:18 MCH 30.0 pg (27.0-33.4) 02/13/19 04:18 MCHC 33.5 g/dL (32.0-36.0) 02/13/19 04:18 RDW 14.7 % (11.5-14.0) H 02/13/19 04:18 Plt Count 200 10^3/uL (150-450) 02/13/19 04:18 Sodium 139.7 mmol/L (137-145) 02/11/19 04:33 Potassium 3.7 mmol/L (3.6-5.0) 02/11/19 04:33 Chloride 100 mmol/L (98-107) 02/11/19 04:33 Carbon Dioxide 32 mmol/L (22-30) H 02/11/19 04:33 Anion Gap 8 (5-19) 02/11/19 04:33 BUN 13 mg/dL (7-20) 02/11/19 04:33 Creatinine 0.77 mg/dL (0.52-1.25) 02/11/19 04:33 Est GFR ( Amer) > 60 (>60) 02/11/19 04:33 Est GFR (MDRD) Non-Af > 60 (>60) 02/11/19 04:33 Glucose 105 mg/dL (75-110) 02/11/19 04:33 Calcium 8.9 mg/dL (8.4-10.2) 02/11/19 04:33 Blood Type A POSITIVE 02/10/19 06:00 Antibody Screen NEGATIVE 02/10/19 06:00 Impressions: Pelvis X-Ray 02/10/19 10:13 IMPRESSION: SATISFACTORY POSTOPERATIVE PELVIS. Plan Plan of Treatment: Patient be discharged to a jail facility for ongoing jail care and physical therapy. Follow-up with Dr. Carbajal in [facility] for surgery in 2 weeks for check. Stroke Is this a Stroke Patient?: No Stroke Pt being discharged on Anti-thrombolytic therapy?: Yes Acute Heart Failure - Is this a Heart Failure Patient?: No
[2019-02-13] MEDS: LOSARTAN POTASSIUM 50 MG TABLET PO SCH (09:35)
[2019-02-13] MEDS: MIRTAZAPINE 15 MG TABLET PO SCH (09:35)
[2019-02-13] MEDS: ASPIRIN 81 MG TABLET, ENT COATED PO SCH (09:36)
[2019-02-13] MEDS: FUROSEMIDE 20 MG TABLET PO SCH (09:36)
[2019-02-13] MEDS: HYDROCHLOROTHIAZIDE 25 MG TABLET PO SCH (09:36)
[2019-02-13] MEDS: PRENATAL VITAMIN W DHA CAPSULE PO SCH (09:36)
[2019-02-13] MEDS: SENNOSIDES/DOCUSATE 8.6-50 MG 1 EACH TABLET PO SCH (09:36)
[2019-02-13] MEDS: NICOTINE 21 MG/24 HR PATCH.TD24 TD SCH (09:37)
[2019-02-13 12:17] VITALS: BP 130/65
== END 2019-02-13 12:35 | DRG 470 ==
LOC: INOR 06:08 → 4N 12:00
PROVIDERS: ADMIT Orthopaedic Surgery; ATTEND Orthopaedic Surgery
PROC: 0SR902Z Replacement of Right Hip Joint with Metal on Polyethylene Synthetic Substitute, Open Approach (ICD-10-PCS; principal; 2019-02-10 08:45)
DX: M16.11 Unilateral primary osteoarthritis, right hip (principal); I10 Essential (primary) hypertension; M79.7 Fibromyalgia; F17.200 Nicotine dependence, unspecified, uncomplicated; Z79.899 Other long term (current) drug therapy; Z88.5 Allergy status to narcotic agent
CPT/HCPCS: 01214; 36415; 72170; 80048; 84132; 85027; 86850; 86900; 86901; 88304; 88311; 94799; C1776; J0690; J1741; J2250; J2405; J2704; J3010; J3370; J3490; J7050; J7060; J7120